=== PATIENT | male | born 1980 | race African-American/Black ===

== ENCOUNTER 2017-05-04 22:19 | Emergency (ER) | payer MEDICAID ==
[~2017-05-04] VITALS: Ht 180.3 cm; Wt 159.0 kg
[~2017-05-04 22:19] MED LIST: ALBUTEROL
[2017-05-04] MEDS ORDERED: PREDNISONE 20MG TABLET PO STA (22:47)
[2017-05-04] MEDS ORDERED: IPRATROPIUM BROMIDE (0.02%) 0.5MG/2.5ML NEB HHN STA (22:47)
[2017-05-04] MEDS ORDERED: ALBUTEROL (0.5%) 2.5MG/0.5ML NEB HHN ONE (23:01)
[2017-05-04] MEDS: ALBUTEROL (0.083%) 2.5MG/3ML NEB HHN SCH ×2 (23:07→23:34)
[2017-05-04 23:33] LABS: PROTHROMBIN TIME 10.5 sec (9.4-11.6)
[2017-05-04 23:35] LABS: BASOPHILS % 0.4 % (0.0-2.0); EOSINOPHILS % 1.1 % (0.0-5.0); HEMATOCRIT. 42.4 % (42.0-52.0); HEMOGLOBIN. 13.3 g/dL (14.0-18.0); LYMPHOCYTES % 23.6 % (20.0-50.0); MEAN CORPUSCULAR HEMOGLOBIN 25.7 pg (28.0-32.0); MEAN CORPUSCULAR VOLUME 82.2 fL (80.0-94.0); MEAN PLATELET VOLUME 7.5 fl (7.4-10.4); MONOCYTES % 6.5 % (2.0-8.0); NEUTROPHILS % 68.4 % (40.0-76.0); PLATELET 283 x1000/uL (130-400); RED BLOOD CELL COUNT 5.15 mill/uL (4.7-6.1); RED CELL DISTRIBUTION WIDTH 17.4 % (11.6-14.6)
[2017-05-04 23:45] LABS: CARBON DIOXIDE 34 mEq/L (21-32); CHLORIDE 95 mEq/L (98-107); TROPONIN I 0.11 ng/mL (0.00-0.04)
[2017-05-05] MEDS: ALBUTEROL (0.083%) 2.5MG/3ML NEB HHN SCH (00:15)
[2017-05-05 00:40] VITALS: BP 161/55
== END 2017-05-05 00:41 | disposition home or self-care (01) ==
LOC: ER 22:25
DX: J45.901 Unspecified asthma with (acute) exacerbation (principal); R79.89 Other specified abnormal findings of blood chemistry; R74.8 Abnormal levels of other serum enzymes; F12.10 Cannabis abuse, uncomplicated; J44.9 Chronic obstructive pulmonary disease, unspecified; Z98.890 Other specified postprocedural states
CPT/HCPCS: 36415; 71010; 80053; 83880; 84484; 85025; 85610; 93005; 94640; 99285; J7512; J7611

== ENCOUNTER 2017-05-05 05:28 | Emergency (ER) | payer MEDICAID ==
[~2017-05-05] VITALS: Ht 182.9 cm; Wt 137.0 kg
[2017-05-05 05:35] VITALS: BP 132/80
== END 2017-05-05 08:11 | disposition left against medical advice (07) ==
LOC: ER 05:28
DX: J45.909 Unspecified asthma, uncomplicated (principal); Z53.21 Procedure and treatment not carried out due to patient leaving prior to being seen by health care provider

== ENCOUNTER 2017-05-30 01:16 | Emergency (ER) | payer MEDICAID, OTHER ==
[~2017-05-30] VITALS: Ht 175.3 cm; Wt 145.0 kg
[2017-05-30] MEDS ORDERED: ALBUTEROL (0.083%) 2.5MG/3ML NEB HHN STA (01:55)
[2017-05-30] MEDS ORDERED: METHYLPREDNISOLONE SOD SUCC 125 MG/2 ML VIAL IV STA (01:55)
[2017-05-30] MEDS ORDERED: IPRATROPIUM BROMIDE (0.02%) 0.5MG/2.5ML NEB HHN STA (01:55)
[2017-05-30] MEDS ORDERED: MAGNESIUM 2 G PREMIX 50 ML IV STA (01:55)
[2017-05-30] MEDS ORDERED: FUROSEMIDE 100MG/10ML VIAL IVP SCH (05:00)
[2017-05-30 05:27] LABS: HEMATOCRIT 40.9 % (42.0-52.0); HEMOGLOBIN 12.6 g/dL (14.0-18.0); MEAN CORPUSCULAR HEMOGLOBIN 26.1 pg (28.0-32.0); PLATELET 253 x1000/uL (130-400); RED BLOOD CELL COUNT 4.82 mill/uL (4.7-6.1); RED CELL DISTRIBUTION WIDTH 18.6 % (11.6-14.6)
[2017-05-30 05:37] LABS: CARBON DIOXIDE 37 mEq/L (21-32); CHLORIDE 98 mEq/L (98-107)
[2017-05-30 06:15] VITALS: BP 164/83
== END 2017-05-30 06:55 | disposition left against medical advice (07) ==
LOC: ER 01:16 → EDBEDREQ 05:20 → ER 06:55 → CANBEDREQ 09:16
DX: J44.1 Chronic obstructive pulmonary disease with (acute) exacerbation (principal); I50.9 Heart failure, unspecified; F17.200 Nicotine dependence, unspecified, uncomplicated
CPT/HCPCS: 36415; 71010; 80048; 83880; 85027; 94644; 94660; 96365; 96366; 96375; 99291; J1940; J2930; J3475; J7611; Z7610

== ENCOUNTER 2017-09-17 23:03 | Emergency (ER) | payer MEDICAID, OTHER ==
[~2017-09-17] VITALS: Ht 180.3 cm; Wt 73.0 kg
[2017-09-17] MEDS ORDERED: ACETAMINOPHEN 325MG TABLET PO STA (23:11)
[2017-09-17] MEDS ORDERED: NITROGLYCERIN OINT 1GM/INCH UDPKT TD ONE (23:15)
[2017-09-17] MEDS ORDERED: ASPIRIN 81MG TABLET PO ONE (23:15)
[2017-09-17] MEDS ORDERED: LABETALOL HCL 20MG/4ML CARPUJECT IV ONE (23:30)
[2017-09-18 00:14] LABS: CHLORIDE 98 mEq/L (98-107)
[2017-09-18 00:16] LABS: BASOPHILS % 0.2 % (0.0-2.0); HEMATOCRIT. 34.9 % (42.0-52.0); HEMOGLOBIN. 10.6 g/dL (14.0-18.0); LYMPHOCYTES % 11.2 % (20.0-50.0); MEAN CORPUSCULAR HEMOGLOBIN 25.5 pg (28.0-32.0); MEAN CORPUSCULAR VOLUME 83.8 fL (80.0-94.0); MEAN PLATELET VOLUME 7.3 fl (7.4-10.4); NEUTROPHILS % 83.6 % (40.0-76.0); PLATELET 372 x1000/uL (130-400); RED BLOOD CELL COUNT 4.17 mill/uL (4.7-6.1); RED CELL DISTRIBUTION WIDTH 19.8 % (11.6-14.6)
[2017-09-18 00:17] LABS: INR 1.3; PROTHROMBIN TIME 13.5 sec (9.4-11.6)
[2017-09-18 00:20] LABS: ETHANOL BLOOD < 10 mg/dL
[2017-09-18] MEDS ORDERED: PIPERACILLIN/TAZ 3.375G PREMIX 50 ML IV ONE (01:00)
[2017-09-18] MEDS ORDERED: SODIUM CHLORIDE 0.9% 1000ML BAG (SEPSIS BOLUS) IV ONE (01:00)
[2017-09-18] MEDS ORDERED: IPRATROPIUM BROMIDE (0.02%) 0.5MG/2.5ML NEB HHN STA (03:37)
[2017-09-18] MEDS ORDERED: ALBUTEROL (0.083%) 2.5MG/3ML NEB HHN STA (03:37)
[2017-09-18 07:48] VITALS: BP 128/71
== END 2017-09-18 08:24 | disposition left against medical advice (07) ==
LOC: ER 23:03 → CANRESERV 09-18 07:55 → ENRESERV 09-18 07:55 → ER 09-18 08:24 → CANBEDREQ 09-18 09:41
DX: R79.89 Other specified abnormal findings of blood chemistry (principal); R74.8 Abnormal levels of other serum enzymes; I10 Essential (primary) hypertension; R07.89 Other chest pain; J44.9 Chronic obstructive pulmonary disease, unspecified
CPT/HCPCS: 36415; 71045; 80053; 83605; 83690; 83880; 84484; 85025; 85610; 87040; 93005; 94640; 96365; 96375; 99291; G0482; J2543; J3490; J7030; J7611; Z7610

== ENCOUNTER 2019-03-19 03:36 | Emergency (ER) | payer MEDICAID, OTHER ==
[~2019-03-19] VITALS: Ht 180.3 cm; Wt 136.0 kg
[2019-03-19 04:30] VITALS: BP 122/80
== END 2019-03-21 11:30 | disposition home or self-care (01) ==
LOC: ER 03:36
DX: J45.901 Unspecified asthma with (acute) exacerbation (principal); I10 Essential (primary) hypertension; F12.10 Cannabis abuse, uncomplicated; F17.200 Nicotine dependence, unspecified, uncomplicated; Z86.718 Personal history of other venous thrombosis and embolism
CPT/HCPCS: 99281; Z7610

== ENCOUNTER 2019-04-05 23:01 | Emergency (ER) | payer OTHER ==
[~2019-04-05] VITALS: Ht 180.3 cm; Wt 121.0 kg
[2019-04-05 23:10] VITALS: BP 156/86
[2019-04-06] MEDS ORDERED: ALBUTEROL (0.083%) 2.5MG/3ML NEB HHN STA (00:09)
[2019-04-06] MEDS ORDERED: IPRATROPIUM BROMIDE (0.02%) 0.5MG/2.5ML NEB HHN STA (00:09)
[2019-04-06] MEDS ORDERED: IBUPROFEN 600MG TABLET PO ONE (00:15)
[2019-04-06] MEDS ORDERED: IPRATROPIUM/ALBUTEROL 0.5-3(2.5)MG/3ML NEB HHN ONE (00:15)
== END 2019-04-06 01:51 | disposition left against medical advice (07) ==
LOC: ER 23:01
DX: M25.571 Pain in right ankle and joints of right foot (principal); R06.02 Shortness of breath; Z87.828 Personal history of other (healed) physical injury and trauma
CPT/HCPCS: 94640; 99283; J7620; Z7610

== ENCOUNTER 2019-05-02 23:39 | Emergency (ER) | payer MEDICAID, OTHER ==
[~2019-05-02] VITALS: Ht 188 cm; Wt 114.0 kg
[2019-05-03] MEDS ORDERED: IPRATROPIUM BROMIDE (0.02%) 0.5MG/2.5ML NEB HHN STA (00:10)
[2019-05-03] MEDS ORDERED: METHYLPREDNISOLONE SOD SUCC 125 MG/2 ML VIAL IV STA (00:10)
[2019-05-03] MEDS ORDERED: MORPHINE SULFATE 4 MG/ML CPJ (NOT FOR IM USE) IV STA (00:10)
[2019-05-03] MEDS ORDERED: ONDANSETRON HCL 4MG/2ML INJ IV STA (00:10)
[2019-05-03] MEDS ORDERED: MAGNESIUM 2 G PREMIX 50 ML IV ONE (00:15)
[2019-05-03 00:31] LABS: BASOPHILS % 0.5 % (0.0-2.0); EOSINOPHILS % 0.8 % (0.0-5.0); HEMATOCRIT. 38.6 % (42.0-52.0); HEMOGLOBIN. 12.2 g/dL (14.0-18.0); LYMPHOCYTES % 25.4 % (20.0-50.0); MEAN CORPUSCULAR HEMOGLOBIN 26.6 pg (28.0-32.0); MEAN CORPUSCULAR VOLUME 84.5 fL (80.0-94.0); MEAN PLATELET VOLUME 7.5 fl (7.4-10.4); MONOCYTES % 6.4 % (2.0-8.0); NEUTROPHILS % 66.9 % (40.0-76.0); PLATELET 173 x1000/uL (130-400); RED BLOOD CELL COUNT 4.57 mill/uL (4.7-6.1); RED CELL DISTRIBUTION WIDTH 18.3 % (11.6-14.6)
[2019-05-03 00:39] LABS: CHLORIDE 101 mEq/L (98-107)
[2019-05-03 00:40] LABS: PROTHROMBIN TIME 10.4 sec (9.6-11.0)
[2019-05-03] MEDS: ALBUTEROL (0.083%) 2.5MG/3ML NEB HHN SCH ×3 (00:40→01:20)
[2019-05-03 00:47] LABS: BG BASE EXCESS 4.6 mmol/L (-2.0-2.0); BG CARBOXYHEMOGLOBIN 4.8 % (0.5-1.5); BG DEOXYHEMOGLOBIN 5.4 % (0.0-5.0); BG FRACTION INSPIRED OXYGEN 36; BG HCO3 ACT 33.4 mmol/L (22.0-26.0); BG METHEMOGLOBIN 0.2 % (0.0-1.5); BG OXYGEN SATURATION 94.3 % (92.0-98.5); BG OXYHEMOGLOBIN 89.6 % (94.0-97.0); BG PCO2 71.5 mmHg (35.0-45.0); BG PH 7.287 (7.350-7.450); BG PO2 75.7 mmHg (75.0-100.0); BG SAMPLE SITE RIGHT RADIAL; BG TOTAL HEMOGLOBIN 12.9 g/dL (12.0-18.0); BG VENT MODE NASAL CANNULA
[2019-05-03] MEDS ORDERED: ETOMIDATE 2MG/ML 10ML VIAL IV ONE (02:45)
[2019-05-03] MEDS ORDERED: SUCCINYLCHOLINE CHLORIDE 200MG/10ML IV ONE (02:45)
[2019-05-03] MEDS ORDERED: PROPOFOL 10MG/ML 100ML 100 ML IV ONE (02:45)
[2019-05-03] MEDS ORDERED: CLONIDINE 0.1MG TABLET PO PRN (07:45)
[2019-05-03] MEDS ORDERED: ONDANSETRON HCL 4MG/2ML INJ IV PRN (07:45)
[2019-05-03] MEDS ORDERED: ENOXAPARIN 40MG/0.4ML SYR SUBCUT SCH (07:45)
[2019-05-03] MEDS ORDERED: ACETAMINOPHEN 325MG TABLET PO PRN (07:45)
[2019-05-03] MEDS ORDERED: PIPERACILLIN/TAZ 3.375G PREMIX 50 ML IV SCH (07:45)
[2019-05-03] MEDS ORDERED: DIPHENHYDRAMINE 50MG/ML VIAL IV PRN (07:45)
[2019-05-03] MEDS ORDERED: DOCUSATE SODIUM 100MG CAPSULE PO PRN (07:45)
[2019-05-03 07:53] VITALS: BP 132/91
== END 2019-05-03 07:54 | disposition left against medical advice (07) ==
LOC: ER 23:39 → EDBEDREQSVC 05-03 03:43 → EDBEDREQ 05-03 03:43 → EDBEDREQTM 05-03 03:43 → ER 05-03 07:54 → CANBEDREQ 05-03 09:04
DX: I11.0 Hypertensive heart disease with heart failure (principal); I50.9 Heart failure, unspecified; J44.1 Chronic obstructive pulmonary disease with (acute) exacerbation; J96.92 Respiratory failure, unspecified with hypercapnia; F17.210 Nicotine dependence, cigarettes, uncomplicated; Z71.6 Tobacco abuse counseling
CPT/HCPCS: 36415; 36600; 71045; 80053; 82375; 82805; 83605; 83690; 83880; 84484; 85025; 85610; 93005; 94640; 94660; 96365; 96375; 99291; J2270; J2405; J2930; J3475; J7611; Z7610

== ENCOUNTER 2023-01-25 00:13 | Emergency (ER) | payer MEDICAID ==
[~2023-01-25] VITALS: Ht 177.8 cm; Wt 132.0 kg
[2023-01-25] MEDS ORDERED: PREDNISONE 20MG TABLET PO STA (00:15)
[2023-01-25] MEDS ORDERED: ALBUTEROL (0.083%) 2.5MG/3ML NEB HHN STA (00:15)
[2023-01-25 00:22] VITALS: TEMP 98.2
[2023-01-25 01:20] LABS: BASOPHILS % 0.3 % (0.0-2.0); DIFFERENTIAL COMMENT 0; EOSINOPHILS % 0.1 % (0.0-5.0); HEMATOCRIT. 42.8 % (42.0-52.0); HEMOGLOBIN. 12.6 g/dL (14.0-18.0); LYMPHOCYTES % 14.9 % (20.0-50.0); MEAN CORPUSCULAR HEMOGLOBIN 25.5 pg (28.0-32.0); MEAN CORPUSCULAR HGB CONC 29.3 g/dL (31.0-37.0); MEAN CORPUSCULAR VOLUME 86.8 fL (80.0-94.0); MEAN PLATELET VOLUME 7.9 fl (7.4-10.4); MONOCYTES % 6.5 % (2.0-8.0); NEUTROPHILS % 78.2 % (40.0-76.0); PLATELET 202 x1000/uL (130-400); RED BLOOD CELL COUNT 4.93 mill/uL (4.7-6.1); RED CELL DISTRIBUTION WIDTH 20.6 % (11.6-14.6); WHITE BLOOD COUNT 10.9 x1000/uL (4.5-11.0)
[2023-01-25 01:27] LABS: CHLORIDE 100 mEq/L (98-107); INDEX HEMOLYSI 1 (1-3); INDEX ICTERIC 1 (1-4); INDEX LIPEMIC 1 (1-3); POTASSIUM 4.6 mEq/L (3.5-5.1); SODIUM 135 mEq/L (136-145)
[2023-01-25 01:36] LABS: ALANINE AMINOTRANSFERASE 31 IU/L (13-61); ALBUMIN 3.6 g/dL (3.4-5.0); ASPARTATE AMINOTRANSFERASE 12 IU/L (15-37); BILIRUBIN TOTAL 0.7 mg/dL (0.1-1.0); CALCIUM 8.7 mg/dL (8.5-10.1); CARBON DIOXIDE 34 mEq/L (21-32); CREATININE 0.8 mg/dL (0.6-1.3); ETHANOL BLOOD < 10 mg/dL (-10); GLUCOSE 124 mg/dL (70-105); NT PRO B-TYPE NATRIURETIC PEP 3034 pg/mL (5-125); PROTEIN TOTAL 7.4 g/dL (6.0-8.3); UREA NITROGEN BLOOD 22 mg/dL (7-21)
[2023-01-25] MEDS ORDERED: FUROSEMIDE 40MG/4ML VIAL IV NR (01:45)
[2023-01-25] MEDS ORDERED: NITROGLYCERIN OINT 1GM/INCH UDPKT TD NR (01:45)
[2023-01-25 02:45] VITALS: BP 165/124
[2023-01-25 03:00] VITALS: PULSE 111; RESP 20; O2SAT 100
[2023-01-25] MEDS ORDERED: ALBUTEROL (0.083%) 2.5MG/3ML NEB ONE (03:03)
[2023-01-25] MEDS ORDERED: PREDNISONE 20MG TABLET PO NR (04:30)
[2023-01-25] MEDS ORDERED: FUROSEMIDE 40MG TABLET PO ONE (04:45)
[2023-01-25] MEDS ORDERED: IPRATROPIUM/ALBUTEROL 0.5-3(2.5)MG/3ML NEB HHN PRN (05:15)
[2023-01-25] MEDS ORDERED: DEXTROSE 50% WATER 50ML SYRINGE IV PRN (05:30)
[2023-01-25] MEDS ORDERED: IPRATROPIUM/ALBUTEROL 0.5-3(2.5)MG/3ML NEB HHN SCH (06:00)
[2023-01-25] MEDS ORDERED: INSULIN LISPRO 100 UNITS/ML SUBCUT SCH (08:20)
[2023-01-25] MEDS ORDERED: FUROSEMIDE 40MG/4ML VIAL IVP SCH (09:00)
[2023-01-25] MEDS ORDERED: BLOOD SUGAR DIAGNOSTIC STRIP TEST SCH (09:00)
== END 2023-01-25 05:30 | disposition left against medical advice (07) ==
LOC: ER 00:13 → EDBEDREQ 02:56 → EDBEDREQTM 02:56 → ER 05:30 → CANBEDREQ 01-26 21:49
DX: J44.1 Chronic obstructive pulmonary disease with (acute) exacerbation (principal); I11.0 Hypertensive heart disease with heart failure; I50.9 Heart failure, unspecified; J44.9 Chronic obstructive pulmonary disease, unspecified
CPT/HCPCS: 80053; 80320; 83880; 83690; 85025; 36415; 71045; 94640; 93005; 99285; J7512; Z7610 ×4; J1940; G0480

== ENCOUNTER 2023-04-21 06:47 | Emergency (ER) | payer MEDICAID ==
[~2023-04-21] VITALS: Ht 175.3 cm; Wt 118.0 kg
[2023-04-21 06:51] VITALS: BP 144/79
[2023-04-21] MEDS ORDERED: PREDNISONE 20MG TABLET PO STA (07:07)
[2023-04-21] MEDS ORDERED: IPRATROPIUM BROMIDE (0.02%) 0.5MG/2.5ML NEB HHN STA (07:07)
[2023-04-21] MEDS ORDERED: ALBUTEROL (0.083%) 2.5MG/3ML NEB HHN STA (07:07)
[2023-04-21] MEDS ORDERED: ACETAMINOPHEN 325MG TABLET PO ONE (07:15)
[2023-04-21 07:17] VITALS: TEMP 98.7
[2023-04-21] MEDS ORDERED: ALBU6.7H15 INH (09:13)
[2023-04-21] MEDS ORDERED: P50 PO (09:13)
[2023-04-21 09:18] VITALS: PULSE 116; RESP 18; O2SAT 100
== END 2023-04-21 10:10 | disposition home or self-care (01) ==
LOC: ER 06:47
DX: J45.901 Unspecified asthma with (acute) exacerbation (principal); I11.0 Hypertensive heart disease with heart failure; I50.9 Heart failure, unspecified; J44.1 Chronic obstructive pulmonary disease with (acute) exacerbation
CPT/HCPCS: 71045; 94640; 99283; J7512; Z7610 ×3

== ENCOUNTER 2023-06-02 14:19 | Emergency (ER) | payer MEDICAID ==
[~2023-06-02] VITALS: Ht 185.4 cm; Wt 117.0 kg
[~2023-06-02 14:19] MED LIST changes: +ALBU6.7H15 INH; +P50 PO
[2023-06-02 14:35] VITALS: BP 203/117; PULSE 137; RESP 16; TEMP 98.4; O2SAT 91
[2023-06-02] MEDS ORDERED: ONDANSETRON HCL 4MG/2ML INJ IV STA (14:37)
[2023-06-02] MEDS ORDERED: METHYLPREDNISOLONE SOD SUCC 125MG/2ML (ACT-O-VIAL) IV STA (14:37)
[2023-06-02] MEDS ORDERED: IPRATROPIUM BROMIDE (0.02%) 0.5MG/2.5ML NEB HHN STA (14:37)
[2023-06-02] MEDS ORDERED: MAGNESIUM 2 G PREMIX 50 ML IV ONE (14:45)
[2023-06-02] MEDS ORDERED: ALBUTEROL (0.083%) 2.5MG/3ML NEB HHN SCH (15:00)
[2023-06-02] MEDS ORDERED: ALBU6.7H15 INH (19:03)
[2023-06-02] MEDS ORDERED: P50 PO (19:03)
[2023-06-02] MEDS ORDERED: FLOV44 INH (19:06)
[2023-06-02] MEDS ORDERED: ASPI-986 MT (19:06)
[2023-06-02] MEDS ORDERED: TOPUD PO (19:06)
== END 2023-06-02 15:03 | disposition left against medical advice (07) ==
LOC: ER 14:19
DX: R06.02 Shortness of breath (principal); J44.9 Chronic obstructive pulmonary disease, unspecified; I50.9 Heart failure, unspecified; I11.0 Hypertensive heart disease with heart failure; F12.10 Cannabis abuse, uncomplicated; Z88.5 Allergy status to narcotic agent; Z79.899 Other long term (current) drug therapy
CPT/HCPCS: 71045; 93005; 99283

== ENCOUNTER 2023-06-02 15:41 | Emergency (ER) | payer MEDICAID ==
[~2023-06-02] VITALS: Ht 180.3 cm; Wt 114.0 kg
[2023-06-02 16:15] VITALS: O2SAT 81
[2023-06-02] MEDS ORDERED: ACETAMINOPHEN 325MG TABLET PO NR (16:24)
[2023-06-02] MEDS ORDERED: ACETAMINOPHEN 325MG TABLET PO STA (16:24)
[2023-06-02] MEDS ORDERED: ALBUTEROL (0.083%) 2.5MG/3ML NEB HHN STA (16:24)
[2023-06-02] MEDS ORDERED: IPRATROPIUM BROMIDE (0.02%) 0.5MG/2.5ML NEB HHN STA (16:24)
[2023-06-02] MEDS ORDERED: METHYLPREDNISOLONE SOD SUCC 125MG/2ML (ACT-O-VIAL) IM STA (16:24)
[2023-06-02] MEDS ORDERED: METHYLPREDNISOLONE SOD SUCC 125MG/2ML (ACT-O-VIAL) IM NR (16:24)
[2023-06-02 17:47] VITALS: PULSE 140; RESP 22
[2023-06-02 18:00] VITALS: BP 184/114; PULSE 108; RESP 28
[2023-06-02 18:26] VITALS: TEMP 99.1
[2023-06-02] MEDS ORDERED: ALBU6.7H15 INH (19:03)
[2023-06-02] MEDS ORDERED: P50 PO (19:03)
[2023-06-02 19:06] LABS: BASOPHILS % 0.4 % (0.0-2.0); DIFFERENTIAL COMMENT 0; HEMATOCRIT. 29.7 % (42.0-52.0); HEMOGLOBIN. 8.8 g/dL (14.0-18.0); LYMPHOCYTES % 14.2 % (20.0-50.0); MEAN CORPUSCULAR HEMOGLOBIN 24.6 pg (28.0-32.0); MEAN CORPUSCULAR HGB CONC 29.7 g/dL (31.0-37.0); MEAN CORPUSCULAR VOLUME 82.7 fL (80.0-94.0); MEAN PLATELET VOLUME 7.3 fl (7.4-10.4); MONOCYTES % 1.7 % (2.0-8.0); NEUTROPHILS % 83.7 % (40.0-76.0); PLATELET 317 x1000/uL (130-400); RED BLOOD CELL COUNT 3.59 mill/uL (4.7-6.1); RED CELL DISTRIBUTION WIDTH 20.1 % (11.6-14.6); WHITE BLOOD COUNT 12.7 x1000/uL (4.5-11.0)
[2023-06-02] MEDS ORDERED: FLOV44 INH (19:06)
[2023-06-02] MEDS ORDERED: TOPUD PO (19:06)
[2023-06-02] MEDS ORDERED: ASPI-986 MT (19:06)
[2023-06-02 19:13] LABS: PROTHROMBIN TIME 10.5 sec (9.6-11.0)
[2023-06-02 19:19] LABS: ALANINE AMINOTRANSFERASE 15 IU/L (10-49); ALBUMIN 3.4 g/dL (3.2-4.8); ASPARTATE AMINOTRANSFERASE 15 IU/L (<34); BILIRUBIN TOTAL 0.3 mg/dL (0.1-1.0); CALCIUM 8.5 mg/dL (8.7-10.4); CARBON DIOXIDE 39 mEq/L (21-32); CHLORIDE 97 mEq/L (98-107); CREATININE 0.8 mg/dL (0.6-1.3); GLUCOSE 141 mg/dL (70-105); POTASSIUM 5.1 mEq/L (3.5-5.1); PROTEIN TOTAL 6.3 g/dL (6.0-8.3); SODIUM 137 mEq/L (136-145); UREA NITROGEN BLOOD 19 mg/dL (9-23)
[2023-06-02 19:55] LABS: ETHANOL BLOOD < 10 mg/dL (<10); TROPONIN I HIGH SENSITIVITY 171 ng/L (3.0-53)
== END 2023-06-02 19:37 | disposition left against medical advice (07) ==
LOC: ER 15:41
DX: J44.1 Chronic obstructive pulmonary disease with (acute) exacerbation (principal); R09.02 Hypoxemia; R00.0 Tachycardia, unspecified; I50.9 Heart failure, unspecified; Z88.6 Allergy status to analgesic agent
CPT/HCPCS: 80053; 80320; 83880; 83690; 85025; 85610; 84484; 36415; 93970; 94640; 93005; 96372; 99285; J2930; Z7610 ×4; G0480

== ENCOUNTER 2023-06-30 23:50 | Emergency (ER) | payer MEDICAID ==
[~2023-06-30] VITALS: Ht 175.3 cm; Wt 87.0 kg
[~2023-06-30 23:50] MED LIST changes: +ASPI-986 MT; +FLOV44 INH; +TOPUD PO
[2023-06-30 23:53] VITALS: BP 149/83; PULSE 126; RESP 18; TEMP 98.3; O2SAT 89
[2023-06-30] MEDS ORDERED: IPRATROPIUM BROMIDE (0.02%) 0.5MG/2.5ML NEB HHN STA (23:58)
[2023-06-30] MEDS ORDERED: ALBUTEROL (0.083%) 2.5MG/3ML NEB HHN STA (23:58)
[2023-07-01] MEDS ORDERED: GUAIFENESIN 600MG ER TABLET PO ONE
[2023-07-01 01:26] LABS: ALANINE AMINOTRANSFERASE 20 IU/L (10-49); ALBUMIN 3.4 g/dL (3.2-4.8); ASPARTATE AMINOTRANSFERASE 48 IU/L (<34); BILIRUBIN TOTAL 0.2 mg/dL (0.1-1.0); CALCIUM 8.6 mg/dL (8.7-10.4); CARBON DIOXIDE 27 mEq/L (21-32); CHLORIDE 97 mEq/L (98-107); CREATININE 1.1 mg/dL (0.6-1.3); GLUCOSE 99 mg/dL (70-105); POTASSIUM 4.4 mEq/L (3.5-5.1); SODIUM 135 mEq/L (136-145); UREA NITROGEN BLOOD 24 mg/dL (9-23); URIC ACID 9.5 mg/dL (3.7-9.2)
[2023-07-01 01:28] LABS: DIFFERENTIAL COMMENT 0; HEMATOCRIT. 26.4 % (42.0-52.0); LYMPHOCYTES % 29.4 % (20.0-50.0); MEAN CORPUSCULAR HEMOGLOBIN 24.5 pg (28.0-32.0); MEAN CORPUSCULAR HGB CONC 30.2 g/dL (31.0-37.0); MEAN CORPUSCULAR VOLUME 81.2 fL (80.0-94.0); MEAN PLATELET VOLUME 6.7 fl (7.4-10.4); MONOCYTES % 8.6 % (2.0-8.0); PLATELET 550 x1000/uL (130-400); RED BLOOD CELL COUNT 3.25 mill/uL (4.7-6.1); RED CELL DISTRIBUTION WIDTH 21.2 % (11.6-14.6); WHITE BLOOD COUNT 17.4 x1000/uL (4.5-11.0)
[2023-07-01 01:49] LABS: ETHANOL BLOOD < 10 mg/dL (<10); PROTEIN TOTAL 8.3 g/dL (6.0-8.3)
[2023-07-01] MEDS ORDERED: AZITHROMYCIN 500MG/250ML 250 ML IV SCH (02:00)
[2023-07-01] MEDS ORDERED: SODIUM CHLORIDE 0.9% 1,000 ML IV NR ×2 (02:00→03:00)
[2023-07-01] MEDS ORDERED: CEFTRIAXONE 1GM PREMIX 50 ML IV NR (02:00)
[2023-07-01] MEDS ORDERED: HYDROCODONE/ACETAMINOPHEN 5/325MG TABLET PO ONE (02:15)
[2023-07-01 03:19] LABS: TROPONIN I HIGH SENSITIVITY 116 ng/L (3.0-53)
== END 2023-07-01 02:23 | disposition left against medical advice (07) ==
LOC: ER 23:50
DX: R06.02 Shortness of breath (principal); R05.9 Cough, unspecified; I11.0 Hypertensive heart disease with heart failure; I50.9 Heart failure, unspecified; J44.9 Chronic obstructive pulmonary disease, unspecified; F12.10 Cannabis abuse, uncomplicated; Z79.899 Other long term (current) drug therapy
CPT/HCPCS: 36415; 71045; 73630; 80053; 80320; 83605; 83880; 84145; 84484; 84550; 85025; 93005; 99291; G0480

== ENCOUNTER 2023-07-01 04:58 | Emergency (ER) | payer MEDICAID ==
[~2023-07-01] VITALS: Ht 180.3 cm; Wt 91.0 kg
[2023-07-01 06:34] VITALS: O2SAT 98
[2023-07-01 09:30] VITALS: BP 149/100; PULSE 82; RESP 20; TEMP 98.5
[2023-07-01 10:18] LABS: CLARITY URINE CLEAR (CLEAR); COLOR URINE YELLOW (YELLOW); GLUCOSE URINE NEGATIVE (NEGATIVE); KETONES URINE NEGATIVE (NEGATIVE); LEUKOCYTE ESTERASE URINE NEGATIVE (NEGATIVE); NITRITE URINE NEGATIVE (NEGATIVE); OCCULT BLOOD URINE NEGATIVE (NEGATIVE); PH URINE 5.5 (4.5-8.0); PROTEIN URINE 1+ (NEGATIVE); SPECIFIC GRAVITY URINE 1.013 (1.005-1.030); UROBILINOGEN URINE 0.2 E.U./dL (0.2-1.0)
[2023-07-01 10:40] LABS: *AMPHETAMINES SCREEN URINE NEGATIVE (NEGATIVE); *BARBITURATES SCREEN URINE NEGATIVE (NEGATIVE); *BENZODIAZEPINES SCREEN URINE NEGATIVE (NEGATIVE); *COCAINE SCREEN URINE NEGATIVE (NEGATIVE); CANNABINOID URINE SCREEN PRESUMPTIVE POSITIVE (NEGATIVE); ECSTASY MDMA SCREEN URINE NEGATIVE (NEGATIVE); METHADONE URINE SCREEN Neg (NEGATIVE); OPIATES URINE SCREEN NEGATIVE (NEGATIVE); PHENCYCLIDINE URINE SCREEN NEGATIVE (NEGATIVE)
[2023-07-01 10:58] LABS: MUCUS URINE TRACE /lpf (NONE/TRACE)
[2023-07-01 10:59] LABS: BACTERIA URINE NONE SEEN; RBC URINE NONE SEEN /hpf (0-2); SQUAMOUS EPITHELIAL CELL URINE NONE SEEN /lpf (RARE/1+); WBC URINE 0-2 /hpf (0-2)
== END 2023-07-01 10:07 | disposition left against medical advice (07) ==
LOC: ER 05:05 → EDBEDREQ 06:42 → ER 10:07
DX: M79.672 Pain in left foot (principal); F12.10 Cannabis abuse, uncomplicated; J45.909 Unspecified asthma, uncomplicated; I10 Essential (primary) hypertension; Z53.21 Procedure and treatment not carried out due to patient leaving prior to being seen by health care provider; Z88.5 Allergy status to narcotic agent
CPT/HCPCS: 80305; 81003; 71045; 93005; 99285; Z7610 ×3

== ENCOUNTER 2023-07-01 10:49 | Emergency (ER) | payer MEDICAID ==
[~2023-07-01] VITALS: Ht 180.3 cm; Wt 105.0 kg
[2023-07-01 11:03] VITALS: O2SAT 91
[2023-07-01 12:23] VITALS: BP 146/89; PULSE 121; RESP 18; TEMP 98.7
[2023-07-01] MEDS: IBUPROFEN 400MG TABLET PO ONE (12:23)
[2023-07-01] MEDS: ACETAMINOPHEN 325MG TABLET PO ONE (12:23)
== END 2023-07-01 12:28 | disposition home or self-care (01) ==
LOC: ER 10:49
DX: M79.605 Pain in left leg (principal); M79.604 Pain in right leg; F12.10 Cannabis abuse, uncomplicated; R79.89 Other specified abnormal findings of blood chemistry; E11.9 Type 2 diabetes mellitus without complications; I11.0 Hypertensive heart disease with heart failure; I50.9 Heart failure, unspecified; Z88.5 Allergy status to narcotic agent
CPT/HCPCS: 99283

== ENCOUNTER 2023-07-01 13:25 | Emergency (ER) | payer MEDICAID ==
[~2023-07-01] VITALS: Ht 175.3 cm; Wt 91.0 kg
[2023-07-01 13:36] VITALS: BP 146/89; TEMP 98.7
[2023-07-01] MEDS ORDERED: IPRATROPIUM/ALBUTEROL 0.5-3(2.5)MG/3ML NEB HHN ONE (13:45)
[2023-07-01] MEDS ORDERED: DEXAMETHASONE 4MG TABLET PO ONE (13:45)
[2023-07-01 14:20] VITALS: PULSE 120; RESP 20; O2SAT 90
[2023-07-01] MEDS ORDERED: DEXAMETHASONE 4MG TABLET PO NR (14:45)
== END 2023-07-01 14:38 | disposition left against medical advice (07) ==
LOC: ER 13:59
DX: R63.8 Other symptoms and signs concerning food and fluid intake (principal); M79.605 Pain in left leg; M79.604 Pain in right leg; R79.89 Other specified abnormal findings of blood chemistry; I10 Essential (primary) hypertension; E11.9 Type 2 diabetes mellitus without complications; I11.0 Hypertensive heart disease with heart failure; I50.9 Heart failure, unspecified; R06.02 Shortness of breath; F12.10 Cannabis abuse, uncomplicated; Z53.21 Procedure and treatment not carried out due to patient leaving prior to being seen by health care provider; Z88.5 Allergy status to narcotic agent
CPT/HCPCS: 71045; 94640; 93005; 99283; Z7610 ×3; J8540

== ENCOUNTER 2023-07-15 16:22 | Emergency (ER) | payer MEDICAID ==
[~2023-07-15] VITALS: Ht 180.3 cm; Wt 113.4 kg
[2023-07-15 16:25] VITALS: O2SAT 88
[2023-07-15 16:55] LABS: HEMATOCRIT. 31.4 % (42.0-52.0); HEMOGLOBIN. 9.1 g/dL (14.0-18.0); MEAN CORPUSCULAR HEMOGLOBIN 23.8 pg (28.0-32.0); MEAN CORPUSCULAR HGB CONC 28.8 g/dL (31.0-37.0); MEAN CORPUSCULAR VOLUME 82.6 fL (80.0-94.0); RED BLOOD CELL COUNT 3.81 mill/uL (4.7-6.1); RED CELL DISTRIBUTION WIDTH 22.8 % (11.6-14.6)
[2023-07-15 16:57] LABS: DIFFERENTIAL COMMENT 1
[2023-07-15 17:09] LABS: ALANINE AMINOTRANSFERASE < 7 IU/L (10-49); ASPARTATE AMINOTRANSFERASE 15 IU/L (<34); BILIRUBIN TOTAL 0.7 mg/dL (0.1-1.0); CALCIUM 9.3 mg/dL (8.7-10.4); CARBON DIOXIDE 35 mEq/L (21-32); CHLORIDE 97 mEq/L (98-107); CREATININE 1.1 mg/dL (0.6-1.3); GLUCOSE 127 mg/dL (70-105); POTASSIUM 4.4 mEq/L (3.5-5.1); PROTEIN TOTAL 7.8 g/dL (6.0-8.3); SODIUM 135 mEq/L (136-145); UREA NITROGEN BLOOD 35 mg/dL (9-23)
[2023-07-15 17:12] LABS: TROPONIN I HIGH SENSITIVITY 106 ng/L (3.0-53)
[2023-07-15 17:21] LABS: MEAN PLATELET VOLUME 7.7 fl (7.4-10.4); PLATELET 354 x1000/uL (130-400)
[2023-07-15 17:23] LABS: ANISOCYTOSIS 2+; PLATELET ESTIMATE NORMAL
[2023-07-15] MEDS: HYDROCODONE/ACETAMINOPHEN 5/325MG TABLET PO ONE (17:58)
[2023-07-15 18:30] VITALS: BP 133/98; PULSE 123; RESP 21; TEMP 98.6
== END 2023-07-15 19:45 | disposition left against medical advice (07) ==
LOC: ER 16:22 → CANBEDREQ 07-16 21:24
DX: R06.02 Shortness of breath (principal); I11.0 Hypertensive heart disease with heart failure; I50.9 Heart failure, unspecified; J44.9 Chronic obstructive pulmonary disease, unspecified; J45.909 Unspecified asthma, uncomplicated
CPT/HCPCS: 36415; 71045; 80053; 83880; 84484; 85025; 93005; 99285

== ENCOUNTER 2023-09-02 20:35 | Emergency (ER) | payer MEDICAID ==
[~2023-09-02] VITALS: Ht 182.9 cm; Wt 91.0 kg
[2023-09-02 20:52] VITALS: BP 162/92; PULSE 105; RESP 18; O2SAT 98
[2023-09-02] MEDS ORDERED: IPRATROPIUM BROMIDE (0.02%) 0.5MG/2.5ML NEB HHN ONE (21:15)
[2023-09-02] MEDS ORDERED: ALBUTEROL (0.083%) 2.5MG/3ML NEB HHN ONE (21:15)
[2023-09-02 22:13] VITALS: TEMP 98.2
[2023-09-02] MEDS: ACETAMINOPHEN 325MG TABLET PO ONE (22:13)
== END 2023-09-02 21:56 | disposition home or self-care (01) ==
LOC: ER 20:35
DX: M79.605 Pain in left leg (principal); G89.29 Other chronic pain; I11.0 Hypertensive heart disease with heart failure; I50.9 Heart failure, unspecified; J44.9 Chronic obstructive pulmonary disease, unspecified; F12.10 Cannabis abuse, uncomplicated
CPT/HCPCS: 99283